=== PATIENT | female | born 1960 | race Caucasian/White ===

== ENCOUNTER 2016-12-10 11:55 | Emergency (ER) | payer OTHER ==
[~2016-12-10] VITALS: Ht 154.9 cm; Wt 49.0 kg
[2016-12-10 12:24] LABS: ABSOLUTE NEUTROPHILS 3.2 thou/uL (1.4-8.2); BASOPHILS 0.9 % (0.0-2.0); EOSINOPHILS 3.9 % (0.0-3.0); HEMATOCRIT 34.6 % (37.0-47.0); HEMOGLOBIN 11.9 gm/dL (12.0-15.0); LYMPHOCYTES 36.4 % (24.0-44.0); MCH 30.2 pg (26.0-34.0); MCHC 34.3 g/dL (28.0-37.0); MCV 87.9 fL (80.0-100.0); MONOCYTES 5.1 % (1.0-8.0); PLATELET COUNT 110 thou/uL (150-400); POLYS 53.7 % (36.0-66.0); RBC 3.94 mil/uL (4.20-5.00); RDW 15.1 % (10.5-14.5); WBC 5.9 thou/uL (4.0-11.0)
[2016-12-10 12:25] LABS: MANUAL DIFF NO
[2016-12-10 12:30] LABS: ANION GAP 10 mmol/L (7-16); BUN 4 mg/dL (7-18); CHLORIDE 95 mmol/L (98-107); CO2 26 mmol/L (21-32); CREATININE 0.6 mg/dL (0.6-1.0); GLUCOSE 133 mg/dL (74-106); POTASSIUM 3.2 mmol/L (3.5-5.1); SODIUM 131 mmol/L (136-145)
[2016-12-10 12:34] LABS: APTT 26.9 Seconds (24.5-32.8); INR 1.1; PROTIME 11.4 Seconds (9.3-11.4)
[2016-12-10 12:38] LABS: TROPONIN-I < 0.04 ng/mL (<0.04-0.07)
[2016-12-10 14:12] VITALS: BP 115/77
[2016-12-10 14:15] LABS: URINE BILIRUBIN NEGATIVE (Negative); URINE BLOOD NEGATIVE (Negative); URINE COLOR YELLOW; URINE GLUCOSE-RANDOM* NEGATIVE (Negative); URINE KETONES NEGATIVE (Negative); URINE LEUKOCYTES-REFLEX NEGATIVE (Negative); URINE PROTEIN (DIPSTICK) NEGATIVE (Negative); URINE UROBILINOGEN 0.2 E.U./dl (0.2-1.0)
== END 2016-12-10 16:34 | disposition home or self-care (01) ==
LOC: ER 11:55
PROVIDERS: Emergency Medicine
DX: R22.0 Localized swelling, mass and lump, head (principal); R41.0 Disorientation, unspecified; Z98.890 Other specified postprocedural states